=== PATIENT | female | born 1955 | race Caucasian/White ===

== ENCOUNTER 2016-09-20 15:07 | Outpatient (CLI) ==
[2014-12-15 15:25] VITALS: BMI 39.9
[2016-09-20 15:33] LABS: BASOPHILS # (AUTO) 0.1 K/uL (0-0.2); BASOPHILS % (AUTO) 0.7 % (0.0-3.0); EOSINOPHILS # (AUTO) 0.3 K/ul (0.0-0.7); EOSINOPHILS % (AUTO) 1.7 % (0.0-7.0); HEMATOCRIT 45.4 % (37.0-47.0); HEMOGLOBIN 14.7 g/dl (12.0-16.0); IMMATURE GRANULOCYTE % (AUTO) 5.2 % (0.0-5.0); LYMPHOCYTES # (AUTO) 3.2 K/uL (0.60-3.4); LYMPHOCYTES % (AUTO) 19.9 (10.0-50.0); MEAN CORPUSCULAR HEMOGLOBIN 29.2 pg (27.0-31.0); MEAN CORPUSCULAR HGB CONC 32.4 (31.8-35.4); MEAN CORPUSCULAR VOLUME 90.3 fl (81.0-99.0); MONOCYTES # (AUTO) 1.1 K/uL (0.4-2.0); MONOCYTES % (AUTO) 6.7 (0-10); NEUTROPHILS # (AUTO) 10.6 K/ul (2.0-6.9); NEUTROPHILS % (AUTO) 65.8; PLATELET COUNT 342 10^3/uL (140-440); RED BLOOD COUNT 5.03 10^6/ul (4.20-5.40); WHITE BLOOD COUNT 16.05 K/ul (4.6-10.2)
[2016-09-20 16:11] LABS: ALBUMIN 3.8 g/dL (3.4-5.0); ALBUMIN/GLOBULIN RATIO 1.12; ANION GAP 13.6; BILIRUBIN,TOTAL 0.44 mg/dL (0.00-1.20); BUN/CREATININE RATIO 14.59; CALCIUM 9.2 mg/dL (8.2-10.2); CHOL/HDL RATIO 5.6 (4.5-5.5); CREATININE 1.37 mg/dL (0.60-1.30); POTASSIUM 4.6 mmol/L (3.5-5.10); TOTAL PROTEIN 7.2 g/dL (6.4-8.2)
== END 2016-09-20 15:08 | disposition home or self-care (01) ==
LOC: LAB 15:07
PROVIDERS: ATTEND Emergency Medicine
DX: E11.9 Type 2 diabetes mellitus without complications (principal); I10 Essential (primary) hypertension; E78.5 Hyperlipidemia, unspecified
CPT/HCPCS: 36415; 80053; 80061; 83036; 84443; 85025

== ENCOUNTER 2016-11-29 10:52 | Outpatient (CLI) ==
[2014-12-15 15:25] VITALS: BMI 39.9
[2016-11-29 11:23] LABS: BASOPHILS # (AUTO) 0.1 K/uL (0-0.2); BASOPHILS % (AUTO) 0.5 % (0.0-3.0); EOSINOPHILS # (AUTO) 0.3 K/ul (0.0-0.7); EOSINOPHILS % (AUTO) 3.5 % (0.0-7.0); HEMOGLOBIN 14.4 g/dl (12.0-16.0); IMMATURE GRANULOCYTE % (AUTO) 0.8 % (0.0-5.0); LYMPHOCYTES # (AUTO) 2.3 K/uL (0.60-3.4); LYMPHOCYTES % (AUTO) 23.9 (10.0-50.0); MEAN CORPUSCULAR HEMOGLOBIN 29.9 pg (27.0-31.0); MEAN CORPUSCULAR HGB CONC 33.5 (31.8-35.4); MEAN CORPUSCULAR VOLUME 89.4 fl (81.0-99.0); MONOCYTES # (AUTO) 0.7 K/uL (0.4-2.0); NEUTROPHILS # (AUTO) 6.3 K/ul (2.0-6.9); NEUTROPHILS % (AUTO) 64.3; PLATELET COUNT 275 10^3/uL (140-440); RED BLOOD COUNT 4.81 10^6/ul (4.20-5.40); WHITE BLOOD COUNT 9.74 K/ul (4.6-10.2)
[2016-11-29 12:21] LABS: ALBUMIN 3.8 g/dL (3.4-5.0); ALBUMIN/GLOBULIN RATIO 1.03; ANION GAP 12.2; BILIRUBIN,TOTAL 0.21 mg/dL (0.00-1.20); CALCIUM 9.4 mg/dL (8.2-10.2); CREATININE 1.4 mg/dL (0.60-1.30); POTASSIUM 4.2 mmol/L (3.5-5.10); TOTAL PROTEIN 7.5 g/dL (6.4-8.2)
[2016-11-29 12:22] LABS: BUN/CREATININE RATIO 15.71; CHOL/HDL RATIO 4.6 (4.5-5.5)
== END 2016-11-29 10:53 | disposition home or self-care (01) ==
LOC: LAB 10:52
PROVIDERS: ATTEND Emergency Medicine
DX: E11.9 Type 2 diabetes mellitus without complications (principal); I10 Essential (primary) hypertension; E78.5 Hyperlipidemia, unspecified
CPT/HCPCS: 36415; 80053; 80061; 82306; 82607; 83036; 84439; 84443; 85025

== ENCOUNTER 2016-11-30 07:41 | Outpatient (CLI) ==
[2014-12-15 15:25] VITALS: BMI 39.9
--- NOTE | 2016-11-30 08:40 | US ---
EXAM: Renal ultrasound HISTORY: Chronic kidney disease COMPARISON: CT 12/16/2014 TECHNIQUE: Renal ultrasound was perform FINDINGS: Right kidney measures 4.1 x 4.7 x 9.3 cm. Left kidney measures 4.3 x 4.2 x 9.4 cm. Danna l cortical echogenicity is normal. No hydronephrosis or renal calculus large enough to cause acoust ic shadowing. There is a simple cyst left superior kidney measuring 0.7 x 0.7 x 0.4 cm. Bladder o nly mildly distended and poorly evaluated, grossly unremarkable. IMPRESSION: 1. No hydronephrosis. 2. Sub centimeter left renal cyst.
== END 2016-11-30 07:42 | disposition home or self-care (01) ==
LOC: RAD 07:41
PROVIDERS: ATTEND Emergency Medicine
DX: N18.9 Chronic kidney disease, unspecified (principal); R06.02 Shortness of breath
CPT/HCPCS: 76770

== ENCOUNTER 2016-12-01 10:01 | Outpatient (CLI) ==
[2014-12-15 15:25] VITALS: BMI 39.9
--- NOTE | 2016-12-01 10:43 | CT ---
EXAM: CT of the chest without contrast History: Short of breath Comparison: None available. Technique: Multiplanar CT images through the thorax were obtained without the administration of IV contrast Findings: Heart size is normal. No pericardial effusion. Coronary calcifications. Annular calcif ications of the aortic valve. No pathologically enlarged thoracic lymph nodes. Calcified left qing r lymph nodes. The mild emphysema. Calcified granulomas seen within the lingula. Scattered bilater al areas of subsegmental atelectasis. Mild diffuse bronchial wall thickening. A subtle peripheral ground-glass changes. No suspicious lung masses or lung nodules. No consolidated pneumonia. Within the visualized upper abdomen, calcified granulomas seen within the spleen and liver. Cholecy stectomy clips. Surgical clips are seen along the right anterior abdominal wall. Benign hyperplasi a of the left adrenal gland. No acute osseous abnormalities. Impression: 1. No consolidated pneumonia. 2. Subtle peripheral ground-glass changes is a nonspecific finding that has been described with non specific interstitial pneumonitis. 3. Mild emphysema. 4. Mild diffuse bronchial wall thickening. 5. Coronary artery disease.
== END 2016-12-01 10:02 | disposition home or self-care (01) ==
LOC: RAD 10:01
PROVIDERS: ATTEND Emergency Medicine
DX: N18.9 Chronic kidney disease, unspecified (principal); R06.02 Shortness of breath

== ENCOUNTER 2016-12-02 09:00 | Outpatient (CLI) ==
[2014-12-15 15:25] VITALS: BMI 39.9
== END 2016-12-02 09:01 | disposition home or self-care (01) ==
LOC: CAR 09:00
PROVIDERS: ATTEND Emergency Medicine
DX: R06.02 Shortness of breath (principal)

== ENCOUNTER 2016-12-07 06:26 | Outpatient (CLI) ==
[2014-12-15 15:25] VITALS: BMI 39.9
--- NOTE | 2016-12-09 09:08 | ECHO2D ---
Date of Exam: 12/07/16 Ordering Physician: JUAN CROSS Reason for Echo: SOB, CORONARY CALCIFICATION, HYPERTENSION M-Mode Normal Adult Results LV Dimensions Normal Adult Results AoV Opening excursions >1.6 >1.6 LVEDD-base- 3.5-5.8 4.6 Ao root dimensions 2.0-3.7 3.2 LVESD-base- 3.1-4.6 L. Atrium dimensions 1.9-3.8 3.5 Post. Wall thickness 0.8-1.1 1.3 IV septum (thickness) 0.7-1.2 1.3 Post. Wall excursion 0.72-1.3 NORMAL Septal motion NORMAL Systolic motion R. Ventricular cavity 1.5-2.0 NORMAL LVEF 60% 59% Paradoxical septal wall motion NORMAL 2-D : 2-D M Mode Echocardiogram was performed using apical four chamber and left parasternal long and short axis views. Mitral, tricuspid and aortic valves appear to be normal. Contractility of the left ventricle seems to be normal, so is the cavity size. Left atrial cavity size and aortic root appear to be normal. There is no pericardial effusion. There is no thrombus noted in the left ventricular or left aortic cavity. No mitral valve prolapse noted. M-MODE: MV: NORMAL AV: NORMAL TV: NORMAL PV: CHAMBER SIZE: NORMAL WALL MOTION: NORMAL PERICARDIUM: NORMAL INTERPRETATION: 1. LEFT VENTRICULAR HYPERTROPHY 2. NORMAL LEFT VENTRICLE CONTRACTILITY 3. NORMAL VALVES MTDD
== END 2016-12-07 06:27 | disposition home or self-care (01) ==
LOC: CAR 06:26
PROVIDERS: ATTEND Emergency Medicine
DX: R06.02 Shortness of breath (principal); I25.10 Atherosclerotic heart disease of native coronary artery without angina pectoris

== ENCOUNTER 2016-12-08 06:32 | Outpatient (CLI) ==
[2014-12-15 15:25] VITALS: BMI 39.9
--- NOTE | 2016-12-09 09:19 | STRESSECHO ---
Date of Test: 12/08/16 Ordering Physician: JUAN CROSS Reason for Exam: HYPERTENSION, DM, SOB, CORONARY CALCIFICATION Current Medications: METOPROLOL, STATIN, ASA, "B/P PILL", VITAMIN E, FISH OIL, VITAMIN D Physical Findings: S1, S2, NO S3 Resting EKG: SINUS RHYTHM/NO ACUTE CHANGES Target Heart Rate: 136/161 STAGE MPH/GRADE HEART RATE BPM BLOOD PRESSURE mmhg RHYTHM S-T SEGMENT +/- UP DOWN SYMPTOMS,COMMENTS At Rest 75 118/90 SR X NONE 1 1.7/10% 122 128/80 SR X NONE 2 2.5/12% 3 3.4/14% 4 4.2/16% 5 5.0/18% Immediately after 135 SR X NONE Durations of Exercise: 3:55 Maximum Heart Rate Reached: 135 Reason for Termination: SHORT OF BREATH 2 MIN POST EXERCISE: HR 114 BPM, OXYGEN RECOVERED TO 96% 4 MIN POST EXERCISE: HR 94 BPM, BP 140/88 MMHG, INTERPRETATION: WITH EXERCISE OXYGEN SATURATION 84% ON ROOM AIR, AT REST 96%, METS 7.0 1. NO EVIDENCE OF ISCHEMIA BY ST-T WAVE 2. NO CHEST PAIN OR CHEST DISCOMFORT 3. BLOOD PRESSURE RESPONSE NORMAL 4. NO ARRHYTHMIAS 5. HYPOXEMIA WITH EXERCISE: 84% OXYGEN SATURATION WITH EXERCISE ON ROOM AIR NORMAL LEFT VENTRICULAR CONTRACTILITY--RESTING AND POST EXERCISE MTDD
--- NOTE | 2016-12-09 09:22 | ECHOSTRESS ---
Date of Exam: 12/08/16 Ordering Physician: JUAN CROSS Reason for Echo: SOB, CORONARY CALCIFICATIONS, HTN, DM, STRESS TEST--NO ISCHEMIA M-Mode Normal Adult Results LV Dimensions Normal Adult Results AoV Opening excursions >1.6 LVEDD-base- 3.5-5.8 Ao root dimensions 2.0-3.7 LVESD-base- 3.1-4.6 L. Atrium dimensions 1.9-3.8 Post. Wall thickness 0.8-1.1 IV septum (thickness) 0.7-1.2 Post. Wall excursion 0.72-1.3 Septal motion Systolic motion R. Ventricular cavity 1.5-2.0 LVEF 60% Paradoxical septal wall motion 2-D: NORMAL LEFT VENTRICULAR CONTRACTILITY--RESTING AND POST EXERCISE M-MODE: MV: AV: TV: PV: CHAMBER SIZE: WALL MOTION: NORMAL LEFT VENTRICULAR CONTRACTILITY--RESTING AND POST EXERCISE PERICARDIUM: INTERPRETATION: 1. NORMAL LEFT VENTRICULAR CONTRACTILITY--RESTING AND POST EXERCISE MTDD
== END 2016-12-08 06:33 | disposition home or self-care (01) ==
LOC: CAR 06:32
PROVIDERS: ATTEND Emergency Medicine
DX: R06.02 Shortness of breath (principal); I25.10 Atherosclerotic heart disease of native coronary artery without angina pectoris

== ENCOUNTER 2017-04-04 09:36 | Outpatient (CLI) ==
[2014-12-15 15:25] VITALS: BMI 39.9
== END 2017-04-04 09:37 | disposition home or self-care (01) ==
LOC: CAR 09:36
PROVIDERS: ATTEND Internal Medicine
DX: R06.02 Shortness of breath (principal); J44.9 Chronic obstructive pulmonary disease, unspecified
CPT/HCPCS: 93005; 93010

== ENCOUNTER 2017-04-05 12:07 | Outpatient (CLI) ==
[2014-12-15 15:25] VITALS: BMI 39.9
--- NOTE | 2017-04-05 14:24 | MRI ---
EXAM: MRI cervical spine without IV contrast. DATE: 05 April 2017. HISTORY: Neck pain. TECHNIQUE: Sagittal and axial T1W and T2W sequences of the cervical spine along with sagittal IR an d coronal T2W sequences were obtained using 1.5 Silvia magnet. No IV contrast. COMPARISON: None. FINDINGS: No cervical scoliosis is present. A 1 mm anterior subluxation of C6 relative to C5 is ob served. No other subluxation, acute fracture, osseous malignancy, or jumped facet is evident. Small anterior osteophytes, disc desiccation, and moderate disc space narrowing are present at C5-6 and C 6-7. Remaining intervertebral discs are normal in height. Cervical vertebra are normal in height. T1W bone marrow signal is heterogeneously bright due to areas of fatty infiltration. Cervical spin al cord is flattened anteriorly by disc/osteophyte complexes at C4-5, C5-6 and C6-7. No syrinx, cor d edema, myelomalacia, or neoplasm is identified. Visible brainstem and cerebellum are unremarkable. No pituitary neoplasm is detected. Visible mast oid air cells are normal. No distinct abnormality of the thyroid, submandibular, or parotid glands is identified. Trachea, larynx, and epiglottis are unremarkable. No cervical lymphadenopathy, neck mass, apical lung mass, pneumonia, or pleural effusion is demonstrated. Segmental analysis: C2-3: Normal. C3-4: Broad posterior disc/osteophyte complex (2.4 mm AP) touches the cord anteriorly. Canal is 8. 2 mm AP. Marked right and mild left foraminal stenoses are due to uncinate hypertrophy, mild/modera te facet arthropathy, and minor left facet disease. C4-5: Broad posterior disc/osteophyte complex (3.4 mm AP) flattens the cord anteriorly. Canal is 7 .8 mm AP. Marked right and moderate left foraminal stenoses due to uncinate hypertrophy and mild fa cet arthropathy. C5-6: Minimal anterior subluxation of C6 and broad posterior disc/osteophyte complex (4.3 mm AP) co mpresses the cord against the posterior wall of the canal. Canal is 5.1 mm AP. Marked bilateral fo raminal stenoses due to uncinate hypertrophy. C6-7: Broad posterior disc/osteophyte complex (3.5 mm AP) compresses the cord against the posterior wall of the canal. Canal is 6.3 mm AP. Moderate bilateral foraminal stenoses due to uncinate hype rtrophy and minor facet disease. C7-T1: Small posterior disc bulge with superimposed midline disc protrusion (1.8 mm AP x 3.5 mm tra nsverse) causes slight anterior cord flattening. Canal is 8.3 mm AP. Each foramen is patent. T1-2: Normal. IMPRESSIONS: 1. C-spine mild spondylosis, mild facet arthropathy, and multilevel DDD. 2. Multilevel central canal stenoses (C3-4: Mild. C4-5: Moderate. C5-6: Severe. C6-7: Marked. C 7-T1: Mild). 3. Multilevel cervical cord flattening. No syrinx or myelomalacia. 4. Multilevel high-grade foraminal stenoses as described. 5. Marrow heterogeneity - likely due to fatty infiltration.
== END 2017-04-05 12:08 | disposition home or self-care (01) ==
LOC: RAD 12:07
PROVIDERS: ATTEND Internal Medicine
DX: M54.2 Cervicalgia (principal)

== ENCOUNTER 2017-04-06 12:07 | Outpatient (CLI) ==
[2014-12-15 15:25] VITALS: BMI 39.9
--- NOTE | 2017-04-06 15:19 | MRI ---
EXAM: MRI left shoulder without contrast. HISTORY: Left shoulder pain. Back pain radiating down left arm. Numbness left hand. No left shou lder surgery reported.. TECHNIQUE: Using a local coil on a high field strength magnet multiplanar multisequence magnet reso nance imaging was attempted of the left shoulder without intravenous or intra-articular gadolinium c ontrast. Examination of limited diagnostic quality secondary to decreased [id number]/[id number] n as well as motion degradation.. FINDINGS: I do not have prior radiographs of the left shoulder available for comparison at the time of this dictation. A Type I acromion with some prominent subacromial enthesopathy/keel spurring. Coracoacromial ligame nt/arch thickened along its acromial attachment. There is additionally a moderately severe degree o f left acromioclavicular joint degenerative arthrosis/osteoarthrosis. Deltoid musculature of normal signal intensity. Trace fluid subacromial/subdeltoid bursa. Muscle bulk of the rotator cuff shows fatty infiltration. Marked diffuse supraspinatus tendinosis o mica the insertion and critical zone. There is high-grade partial thickness articular sided tearing. This measures upwards of 13 mm AP. There is upwards of 24 mm of articular sided distal tendon end retraction. Over the far anterior lateral aspect there is full-thickness tear extent. Posterior t here is infraspinatus tendinosis with partial thickness intrasubstance tear extension with delaminat ion. Posterior intact teres minor tendon fibers. Anterior intact subscapularis tendon fibers.. Th e long head of the biceps tendon shows intact fibers located in expected position within the bicipit al groove and within normal limit in signal intensity and morphology. The left humeral head is within normal limit in morphology and seated. No left glenohumeral joint c entered subchondral bone marrow edema or bone erosions. Trace left glenohumeral joint effusion. Te ar posterior-superior left glenoid labrum. IMPRESSION: Moderate left acromioclavicular joint degenerative arthrosis/osteoarthrosis. Marked diffuse supraspinatus tendinosis. High-grade partial thickness articular sided tearing as de scribed with full-thickness tear extent over the far anterior lateral aspect. Trace fluid subacromi al/subdeltoid bursa. Posterior infraspinatus tendinosis with partial thickness intrasubstance tear extension with delamin ation. Trace left glenohumeral joint effusion. Tear posterior-superior left glenoid labrum. Recommendation is obtainment and correlation with plain film radiographs of the left shoulder as non e are available for comparison at the time of this dictation.
== END 2017-04-06 12:08 | disposition home or self-care (01) ==
LOC: RAD 12:07
PROVIDERS: ATTEND Internal Medicine
DX: M25.512 Pain in left shoulder (principal)

== ENCOUNTER 2018-01-12 12:45 | Outpatient (CLI) ==
[2014-12-15 15:25] VITALS: BMI 39.9
== END 2018-01-12 12:46 | disposition home or self-care (01) ==
LOC: LAB 12:45
PROVIDERS: ATTEND Internal Medicine
DX: E78.5 Hyperlipidemia, unspecified (principal); I10 Essential (primary) hypertension; E11.9 Type 2 diabetes mellitus without complications
CPT/HCPCS: 36415; 80053; 80061; 82306; 82607; 83036; 84443; 85025

== ENCOUNTER 2018-11-20 14:49 | Outpatient (CLI) ==
[2014-12-15 15:25] VITALS: BMI 39.9
== END 2018-11-20 14:50 | disposition home or self-care (01) ==
LOC: LAB 14:49
PROVIDERS: ATTEND Internal Medicine
DX: E11.9 Type 2 diabetes mellitus without complications (principal); E78.5 Hyperlipidemia, unspecified; I10 Essential (primary) hypertension; E66.9 Obesity, unspecified; J44.9 Chronic obstructive pulmonary disease, unspecified
CPT/HCPCS: 36415; 80053; 80061; 83036; 84439; 84443; 85025